=== PATIENT | female | born 1935 | race Caucasian/White ===

== ENCOUNTER → 2016-06-20 16:30 | Outpatient (CLI) | payer MEDICARE, OTHER | END | disposition home or self-care (01) | LOC: D.MAMMO 06-16 15:45 | DX: Z12.31 Encounter for screening mammogram for malignant neoplasm of breast (principal) ==

== ENCOUNTER → 2017-06-28 20:11 | Outpatient (CLI) | payer MEDICARE, OTHER | END | disposition home or self-care (01) | LOC: D.MAMMO 15:30 | DX: Z12.31 Encounter for screening mammogram for malignant neoplasm of breast (principal) ==

== ENCOUNTER 2018-07-13 09:00 | Outpatient (CLI) | payer MEDICARE, OTHER | END 2018-07-13 10:00 | disposition home or self-care (01) | LOC: D.MAMMO 09:00 | PROVIDERS: ATTEND Family Medicine | DX: Z12.31 Encounter for screening mammogram for malignant neoplasm of breast (principal) ==

== ENCOUNTER 2019-02-16 19:56 | Inpatient (IN) | payer MEDICARE, OTHER ==
[~2019-02-16] VITALS: Ht 154.9 cm; Wt 87.2 kg
--- NOTE | ~2019-02-16 | EC ---
PATIENT:MUNA PEREZ DATE OF SERVICE: 02/16/19 SEX: F MEDICAL RECORD: [id number] DATE OF : 33 LOCATION:D.M2 D.211 AGE OF PATIENT: 84 ADMISSION DATE: 02/16/19 REFERRING PHYSICIAN: INTERPRETING PHYSICIAN: RAMONE AYOUB MD ECHOCARDIOGRAM REPORT ECHO CHARGES 4 ECHO COMPLETE Date: 02/17/19 CLINICAL DIAGNOSIS: AL ECHOCARDIOGRAPHIC MEASUREMENTS (adult normal given) AC root (d.<3.7cm) 3.1 cm LV Septum d (<1.2 cm> 1.5 cm Valve Excursion 1.7 cm LV Septum (systole) 1.6 cm Left Atria (s.<4.0cm> 3.5 cm LVPW d(<1.2cm) 1.7 cm RV (d.<2.3cm) 4.0 cm LVPW (sytole) 2.0 cm LV diastole(<5.6CM) 2.9 cm MV E-F(>70mm/sec) cm LV systole 1.6 cm LVOT Diameter 1.8 cm MV exc.(>10mm) 1.2 cm Est.ejection fraction (50-75%) % DOPPLER: LVIT cm/sec A 119.0cm/sec E 55.0 cm/sec LA cm/sec RVSP 51 mmHg LVOT 87 cm/sec AOP1/2T m/s Asc. Ao 136 cm/sec RVOT 72 cm/sec RA cm/sec PA 82 cm/sec AV Gradient Peak 7.36 mmHg AV Mean 3.68 mmHg AV Area 1.6 cm MV Gradient Peak 5.45 mmHg MV Mean 1.67 mmHg MV Area cm COMMENTS: Instrument Setter: Samantha PLEITEZ Shank Sorter: 1 Dr. Ayoub TAPE# PACS Pericardial Effusion N DATE OF SERVICE: 02/17/2019 FINDINGS: 1. Left ventricular chamber size is within normal limits. Left ventricular systolic function is normal. Overall ejection fraction at 60% to 65%. 2. Left atrium is within normal limits at 3.5 cm. Right atrium and right ventricular chamber sizes are mildly dilated. 3. Valvular structures have normal structure and motion. 4. Doppler interrogation reveals trace mitral regurgitation, mild tricuspid regurgitation, no other valvular insufficiency or stenosis. ECHOCARDIOGRAM REPORT [id number] MUNA PEREZ 5. No evidence of pericardial effusion or left ventricular thrombus. TRANSINT:[id number] Voice Confirmation ID: [id number] DOCUMENT ID: [id number] RAMONE AYOUB MD CC: [id number] DICTATION DATE: 02/18/19 1002 SEARCH ENGINE OPTIMIZATION ANALYST: 02/18/19 1423 ADM IN [facility] [address] [place] [id number]
--- NOTE | ~2019-02-16 | DS ---
PATIENT:MUNA TSAI :33 MEDICAL RECORD: [id number] DISCHARGE SUMMARY ADMISSION DATE: 02/18/19 DISCHARGE DATE: DATE OF DISCHARGE: 02/18/2019 DIAGNOSES: 1. Non-Q-wave myocardial infarction. 2. Percutaneous transluminal coronary angioplasty stent left anterior descending this admission. 3. Hypertension. 4. Hyperlipidemia. HOSPITAL COURSE: Mrs. Tsai presents with acute coronary syndrome, elevated troponin, non-Q-wave myocardial infarction, found to have significant disease of the LAD, underwent successful PTCA stent of the LAD, discharged home with the addition of aspirin, Plavix, Pravachol to her medical regimen. No beta brett was undertaken secondary to hypotension and bradycardia. She will [facility] up with [facility] in [facility] month. TRANSINT:[id number] Voice Confirmation ID: [id number] DOCUMENT ID: [id number] RAMONE PATEL MD CC: [id number] DICTATION DATE: 02/18/19 1327 CABLE PLACER: 02/19/19 0539 ADM IN [facility] [address] [place] [address]
--- NOTE | ~2019-02-16 | OP ---
PATIENT NAME: MUNA PEREZ MEDICAL RECORD: [id number] :34 LOCATION:D.M2 D.2123 ADMISSION DATE:02/18/19 SURGEON: RAMONE PATEL MD DATE OF OPERATION: 02/18/2019 PROCEDURES: 1. PTCA stent LAD. 2. IFR. 3. Left heart catheterization. 4. Selective coronary angiography. 5. Left ventriculogram. INDICATION: Non-Q-wave myocardial infarction. DESCRIPTION OF PROCEDURE IN DETAIL: After informed consent was obtained and after description of risks, benefits as well as alternative therapies, the patient elected to proceed with angiogram and angioplasty. The right femoral area was prepped and draped in normal sterile fashion. Right femoral artery was cannulated via modified Seldinger technique with placement of 6-Pashto sheath. All catheters exchanged through this sheath. FINDINGS: The left ventriculogram was performed in standard 30-degree SALAZAR view, reveals good cardiac wall motion, ejection fraction is 60%. SELECTIVE CORONARY ANGIOGRAPHY: 1. Left main is with no significant angiographic disease. 2. Left anterior descending has a questionable 70% stenosis in the proximal aspect. IFR is abnormal at 0.81. 3. Left circumflex has moderate irregularities, but no flow-limiting stenosis. 4. Right coronary has moderate irregularities, but no flow-limiting stenosis. PTCA STENT OF THE LAD: The stent used was a 3.5 x 22 mm Bart. Result was 0% residual stenosis. OVERALL IMPRESSION: Successful percutaneous transluminal angioplasty stent of the left anterior descending going from 70% initial stenosis with abnormal IFR to 0% residual. TRANSINT:[id number] Voice Confirmation ID: [id number] DOCUMENT ID: [id number] RAMONE PATEL MD CC: [id number] DICTATION DATE: 02/18/19 1328 LAWN MOWER SHARPENER: 02/18/192032 ADM IN [facility] [address] [place] [address]
--- NOTE | ~2019-02-16 | HEMODYNAMI ---
PATIENT:MUNA PEREZ MEDICAL RECORD: [id number] : 33 [facility]ATION[facility] D.2118 [id number] ADMISSION DATE: 02/16/19 Generatedon:02/18/201913:38 Patient name: MUNA PEREZ Patient #: [id number] SSN: [id number] : 1935 Date of study: 02/18/2019 Page: Of Hemodynamic Procedure Report Patient Data Patient Demographics Procedure consent was obtained First Name: MUNA Gender: Female Last Name: CHRIS : 1935 [facility] Initial: AKI Age: 84 year(s) Patient #: [id number] Race: SSN: [id number] Additional ID: [id number] Contact details Address: [address] [place] [address] State: [place] City: [place] Zip code: [address] Admission Admission Data Admission Date: 02/16/2019 Admission Time: 21:01 Arrival Date: 02/18/2019 Arrival Time: 0:00 Admit Source: Emergency Insurance Payor: Medicare department [facility] #: [id number] Room #: D.2118 Lab Results Lab Result Date: 02/18/2019 Lab Result Time: 0:00 Biochemistry Name Units Result Min Max BUN mg/dl 55 --(----)-* 7 18 Creatinine mg/dl 1.8 --(----)-* 0.6 1.3 eGFR ml/min 28 *-(----)-- 90 120 NONAFRICAN Troponin l ng/ml 0.283 --(----)-* 0 0.06 CBC Name Units Result Min Max Hematocrit % 38.7 *-(----)-- 42 54 Hemoglobin g/dl 12.8 -*(----)-- 13.5 17.5 Procedure Procedure Types Cath Procedure Diagnostic Procedure LHC LH w/Coronaries FFR/IVUS FFR Initial Sedation Charges Moderate Sedation up to 15 minutes PCI Procedure Coronary Stent Coronary Stent Initial Hemochron ACT Test Procedure Description Procedure Date Procedure Date: 02/18/2019 Procedure Start Time: 13:08 Procedure End Time: 13:28 Procedure Staff Name Function Venkata Ayoub MD Performing Physician Que Gordon RT Monitor Tess Laureano RN Nurse Kiah Walker RT Scrub Indication Acute coronary syndrome Procedure Data Cath Procedure Fluoroscopy Diagnostic fluoroscopy Total fluoroscopy Time: 2.2 time: 2.2 min min Diagnostic fluoroscopy Total fluoroscopy dose: 410 dose: 410 mGy mGy Contrast Material Contrast Material Type Amount (ml) Isovue 370 71 Entry Location Entry Primary Successful Side Size Upsize Upsize Entry Closure Succes sful Closure Location (Fr) 1 (Fr) 2 (Fr) Remarks Device Remarks Femoral Right 5 Fr 6 Fr Exoseal artery Short Estimated blood loss: 10 ml Diagnostic catheters Device Type Used For End Catheter Placement MULTIPACK Pigtail 5 Fr Procedure catheter MULTIPACK JL 4.0 5Fr Procedure catheter MULTIPACK 3DRC 5Fr Procedure catheter Procedure Complications No complications Procedure Medications Medication Administration Route Dosage Oxygen etCO2 Nasal cannula 3 l/min Lidocaine 2% added to field 20 Heparin Flush Bag added to field 2 bags (1000units/500ml NS) 0.9% NaCl I.V. 100 ml/hr Radial Cocktail added to field 1 syringe (Verapamil 2mg/Nitro 400mcg/Heparin 1500units) Versed I.V. 1 mg Fentanyl I.V. 50 mcg Versed I.V. 1 mg Fentanyl I.V. 50 mcg Versed I.V. 1 mg Heparin Bolus I.V. 4000 units Plavix P.O. 75 mg Hemodynamics Rest HGB: 12.8 (g/dl) Heart Rate: 63 (bpm) Snapshots Pre Cath Intra NCS Post Cath Vital Signs Time Heart Resp SPO2 etCO2 NIBP (mmHg) Rhythm Pain Sedation Rate (ipm) (%) (mmHg) Status Level (bpm) 12:41:48 66 17 86 0 134/67(109) NSR 0 (11) 10(A) , No pain 12:46:02 64 15 86 0 122/61(96) NSR 0 (11) 10(A) , No pain 12:50:12 56 15 90 27.7 120/63(100) NSR 0 (11) 10(A) , No pain 12:54:20 57 15 97 23.2 126/60(102) NSR 0 (11) 10(A) , No pain 12:58:30 55 14 98 0 124/60(91) NSR 0 (11) 10(A) , No pain 13:02:37 58 15 98 22.4 126/67(82) NSR 0 (11) 10(A) , No pain 13:06:47 58 16 98 9.7 128/63(80) NSR 0 (11) 10(A) , No pain 13:10:59 57 14 96 4.4 119/58(81) NSR 0 (11) 9(A) , No pain 13:15:07 53 17 97 0 120/62(85) NSR 0 (11) 9(A) , No pain 13:19:19 55 12 97 25.4 119/61(99) NSR 0 (11) 9(A) , No pain 13:23:29 57 13 98 0 113/55(71) NSR 0 (11) 10(A) , No pain 13:27:37 58 14 98 0 109/56(70) NSR 0 (11) 10(A) , No pain Medications Time Medication Route Dose Verified Delivered Reason Not es Effectiveness by by 12:45:32 Oxygen etCO2 3 l/min Venkata Pulido used for Nasal Mega Laureano RN procedure cannula 12:46:07 Lidocaine 2% added 20ml Venkata Hastings for local to vial Mega Ayoub MD anesthetic field 12:46:14 Heparin Flush added 2 bags Venkata Hastings used for Bag to Mega Ayoub MD procedure (1000units/500ml field NS) 12:46:24 0.9% NaCl I.V. 100 Venkatakerri Pulido Per physician ml/hr Mega Laureano RN 12:48:36 Radial Cocktail added 1 Venkata Hastings for (Verapamil to syringe Mega Ayoub MD vasodilation 2mg/Nitro field 400mcg/Heparin 1500units) 13:05:51 Versed I.V. 1 mg Venkata Rameyie for sedation Mega Laureano RN 13:05:58 Fentanyl I.V. 50 mcg Venkata Rameyie for sedation Mega Laureano RN 13:11:52 Versed I.V. 1 mg Venkata Rameyie for sedation Mega Laureano RN 13:11:56 Fentanyl I.V. 50 mcg Venkata Pulido for sedation Mega Laureano RN 13:19:07 Heparin Bolus I.V. 4000 Venkata Pulido for amber ifed units Mega Laureano RN anticoagulation with dr ayoub 13:19:09 Versed I.V. 1 mg Venkata Pulido for sedation Mega Laureano RN 13:26:31 Plavix P.O. 75 mg Venkata Pulido for Mega Laureano RN antiplatelet therapy Procedure Log Time Note 12:12:53 Informed consent obtained and on chart 12:15:16 Arrival Date: 02/18/2019 12:00:00 AM 12:15:49 Insurance Payor : Medicare 12:15:52 Admit Source: Emergency department 12:19:36 Diagnostic Cath Status : Urgent 12:20:16 Indication : Acute coronary syndrome 12:20:41 Procedure Status Urgent Heart Cath (IP). 12:20:45 Que Gordon RT(R) sent for patient. Start room use. 12:20:48 Time tracking: Regular hours (M-F 7:00 - 5:00) 12:20:57 Plan of Care:Hemodynamics will remain stable., Cardiac rhythm will remain stable., Comfort level will be maintained., Respiratory function will remain adequate., Patient/ family verbilizes understanding of procedure., Procedure tolerated without complication., Recovers from procedure without complications.. 12:21:25 ACC Patient presents with Unstable Angina CCS Anginal Class 4--Inability to carry out any physical activity w/o angina. Angina may occur at rest. 12:27:51 Lab Result : BUN 55 mg/dl 12::51 Lab Result : eGFR NONAFRICAN 28 ml/min 12::51 Lab Result : Troponin l 0.283 ng/ml 12::51 Lab Result : Creatinine 1.8 mg/dl 12::51 Lab Result : Hematocrit 38.7 % 12:27:51 Lab Result : Hemoglobin 12.8 g/dl 12:33:00 Patient received from Med II to CCL 1 Alert and oriented. Tansferred to table in Supine position. 12:40:30 Warm blankets applied, and malinda hugger turned on for patient comfort. 12:40:31 Correct patient and procedure confirmed by team. 12:40:32 ECG and BP/O2 sat monitors applied to patient. 12:40:32 Vital chart was started 12:45:32 Oxygen 3 l/min etCO2 Nasal cannula was administered by Tess Laureano RN; used for procedure; Verbal order read back and verified. 12:46:07 Lidocaine 2% 20ml vial added to field was administered by Venkata Ayoub MD; for local anesthetic; Verbal order read back and verified. 12:46:14 Heparin Flush Bag (1000units/500ml NS) 2 bags added to field was administered by Venkata Ayoub MD; used for procedure; Verbal order read back and verified. 12:46:24 0.9% NaCl 100 ml/hr I.V. was administered by Tess Laureano RN; Per physician; Verbal order read back and verified. 12:48:36 Radial Cocktail (Verapamil 2mg/Nitro 400mcg/Heparin 1500units) 1 syringe added to field was administered by Venkata Ayoub MD; for vasodilation; Verbal order read back and verified. 12:49:05 Baseline sample Acquired. 12:49:12 Rhythm: sinus rhythm 12:49:14 Full Disclosure recording started 12:49:25 H&P Date Dictated: 02/16/2019 Within 30 days and on chart.. 12:49:26 Pre-procedure instructions explained to patient. 12:49:27 Pre-op teaching completed and patient verbalized understanding. 12:49:29 Family in waiting room. 12:49:32 Patient NPO since Midnight. 12:49:34 Is the patient allergic to Iodine/contrast media? No. 12:49:38 Is patient on blood thinner?Yes 12:49:42 ACC The patient was administered the following blood thiners within the last 24 hours: ACCPlavix 12:49:48 Patient diabetic? No. 12:49:51 Previous problem with sedation/anesthesia? No ? 12:49:55 Snore? Yes 12:49:56 Sleep apnea? No 12:49:57 Deviated septum? No 12:49:59 Opens mouth fully? Yes 12:50:00 Sticks out tongue? Yes 12:50:03 Airway obstruction? No ? 12:50:04 Dentures? Yes PARTIAL IN 12:50:18 Pre procedure: right dorsailis pedis pulse 1+ Palpable, but thready & weak; easily obliterated 12:57:34 Modified Sergey's test Ulnar < 7 seconds 12:57:35 Patient pain scale 0/10 ?. 12:57:43 IV patent on arrival in left forearm with 0.9% NaCl at [facility]. 12:57:45 Lab results completed and on chart. 13:02:28 Stress Test: no; N/A ? 13:02:31 Risk of Mortality: 2.1 13:02:35 Risk of blood transfusion: 3.3 13:02:38 Risk of DANTE: 9.3 13:02:48 Right Radial & Right Groin area was prepped with chlora-prep and draped in sterile fashion 13:02:50 Alarms reviewed by R. N. 13:02:51 Sharps counted by scrub and verified by R.N. 13:02:57 Use device set Radial Dx or PCI 13:02:59 Tegaderm 4 x 4 (1626W) opened to sterile field. 13:03:11 ACIST Syringe (14595) opened to sterile field. 13:03:12 Medline Cath Pack ([id number]) opened to sterile field. 13:03:12 Bag Decanter (2002S) opened to sterile field. 13:03:12 ACIST Hand Control (98203) opened to sterile field. 13:03:13 ACIST Manifold (46541) opened to sterile field. 13:03:14 MBrace Wrist Support ([id number]) opened to sterile field. 13:03:15 EMERALD Guide Wire (648-333) opened to sterile field. 13:04:18 Physician arrived 13:04:18 --------ALL STOP TIME OUT------ 13:04:19 Final Timeout: patient, procedure, and site verified with staff and physician. All members of the team are in agreement. 13:04:21 Right Radial & Right Groin site verified by team. 13:04:25 Fire Safety Assessment: A--An alcohol-based skin anteseptic being used preoperatively., C--Open oxygen or nitrous oxide is being used., D--An ESU, laser, or fiber-optic light is being used. 13:04:27 Physical assessment completed. ASA score P 2 - A patient with mild systemic disease as per Venkata Ayoub MD. 13:04:32 4) 15-29 Severley reduced kidney function. 13:04:35 Maximum allowable contrast dose (3.7 X eGFR X 0.75)78 ml. 13:04:39 Sedation plan: IV Moderate Sedation Medication:Versed, Fentanyl 13:05:51 Versed 1 mg I.V. was administered by Tess Laureano RN; for sedation; Verbal order read back and verified. 13:05:58 Fentanyl 50 mcg I.V. was administered by Tess Laureano RN; for sedation; Verbal order read back and verified. 13:08:51 Procedure started. 13:08:58 Local anesthetic to right radial artery with Lidocaine 2% by Venkata Ayoub MD.INITIAL ACCESS ONLY 13:10:13 Unable to advance wire due to radial loop. Moving to femoral approach. 13:10:33 Use device set Multipack Set 13:10:36 DIAGNOSTIC Multipack 5Fr catheter set ([id number]) opened to sterile field. 13:10:43 SHEATH 5FR [place] (CPI598) opened to sterile field. 13:11:35 Local anesthetic to right femoral artery with Lidocaine 2% by Venkata Ayoub MD.ADDITIONAL ACCESS 13:11:52 Versed 1 mg I.V. was administered by Tess Laureano RN; for sedation; Verbal order read back and verified. 13:11:56 Fentanyl 50 mcg I.V. was administered by Tess Laureano RN; for sedation; Verbal order read back and verified. 13:12:12 A 5 Fr sheath was inserted into the Right Femoral artery 13:12:20 A MULTIPACK Pigtail 5 Fr catheter was advanced over the wire and used for Procedure. 13:13:24 LV angiography performed. 13:13:25 LV gram done using SALAZAR 13:13:30 EF : 60 % 13:13:32 Injector settings: Ml/sec: 5, Volume: 15, 13:13:40 Catheter removed. 13:13:46 A MULTIPACK JL 4.0 5Fr catheter was advanced over the wire and used for Procedure. 13:14:35 LCA angiography performed. 13:15:08 Wentworth Verrata Plus pressure wire (24873W) opened to sterile field. 13:15:13 Use device set TAUTH PCI 13:15:16 SHEATH 6FR [place] (NEN206) opened to sterile field. 13:15:19 GUIDE 6FR XBLAD 3.5 catheter ([id number]) opened to sterile field. 13:15:30 Catheter removed. 13:15:42 Sheath upsized to a 6 Fr Short. 13:15:51 INFLATOR Merit BasixCompak (EE5324) opened to sterile field. 13:15:56 A MULTIPACK 3DRC 5Fr catheter was advanced over the wire and used for Procedure. 13:16:34 RCA angiography performed. 13:16:36 ACCDominant side:Right 13:16:45 Catheter removed. 13:17:17 6 Fr XBLAD 3.5 guide catheter was inserted over the wire 13:17:33 FFR/IFR wire advanced. 13:18:25 Wire advanced across lesion. 13:19:07 Heparin Bolus 4000 units I.V. was administered by Tess Laureano RN; for anticoagulation; verifed with dr ayoub Verbal order read back and verified. 13:19:09 Versed 1 mg I.V. was administered by Tess Laureano RN; for sedation; Verbal order read back and verified. 13:19:30 mLAD lesion measured at 0.81 with IFR 13:21:28 Pre PCI Site: Three Affiliated pLAD has 70% stenosis. 13:21:31 ACC Pre-intervention GABINO Flow is 3. 13:21:44 Place stent Inflation Number: 1 A KAREN RX 3.5 x 22 stent ([id number]) was prepped and advanced across the Prox LAD 70. The stent was deployed at 17 SHAMIKA for 0:10 (min:sec) 0. 13:21:48 Stent catheter was removed intact over wire. 13:21:49 Wire removed. 13:21:49 Guide catheter removed. 13:21:52 ACC Post-intervention GABINO Flow is 3. 13:22:01 Post PCI Site: Three Affiliated pLAD has 0% stenosis. 13:23:29 EXOSEAL 6Fr (EX600) opened to sterile field. 13:23:40 Sheath removed intact; hemostasis achieved with Exoseal to the Right Femoral artery. 13:23:46 Procedure ended.(Physican Out) 13:24:16 Fluoroscopy time 02.20 minutes. 13:24:20 Fluoroscopy dose: 410 mGy 13:24:20 Flurop Dose total: 410 13:24:37 Dose Area Product 67519 mGy/cm. 13:24:46 Contrast amount:Isovue 370 71ml. 13:24:56 Maximum allowable dose exceeded? No. 13:24:58 Sharps counted by scrub and verified by R.N. 13:25:04 Post-op/insertion site Right Femoral artery dressed using a 4 x 4 and Tegaderm. 13:25:06 Post Procedure Pulses reassessed and unchanged 13:25:08 Post-procedure physical assessment completed. ASA score P 2 - A patient with mild systemic disease as per Venkata Ayoub MD. 13:25:11 Post procedure rhythm: unchanged. 13:25:12 Estimated blood loss: 10 ml 13:25:14 Post procedure instruction explained to patient.Patient verbalizes understanding. 13:25:14 Patient needs reinforcement of post procedure teaching. 13:25:37 Procedure type changed to Cath procedure, Diagnostic procedure, LHC, C w/Coronaries, FFR/IVUS, FFR Initial, Sedation Charges, Moderate Sedation up to 15 minutes, PCI procedure, Coronary Stent, Coronary Stent Initial, Hemochron ACT Test 13:25:39 Procedure and supply charges have been captured, reviewed, submitted and are correct. 13:26:31 Plavix 75 mg P.O. was administered by Tess Laureano RN; for antiplatelet therapy; Verbal order read back and verified. 13:27:04 ACT drawn and resulted at 194 seconds. (normal therapeutic range 180-240 seconds). 13:28:21 Procedure Complication : No complications 13:28:25 Vital chart was stopped 13:28:26 [facility] Findings: MVD- PCI performed (see procedure note) 13:28:28 Operative report dictated upon procedure completion. 13:28:28 See physician's report for complete and final results. 13:28:30 Report given to Pre/Post Procedure Room. 13:28:33 Patient transfered to Pre/Post Procedure Room with Stretcher. 13:28:35 Procedure ended. 13:28:35 Full Disclosure recording stopped 13:29:02 End room use (Document Last) 13:29:13 End room use (Document Last) 13:36:43 Pt began to develop a hematoma of the right groin, Femstop placed at 100. 13:36:57 FEMSTOP Gold (O49039) opened to sterile field. Intervention Summary Intervention Notes Time ActionType Lesion and Equipment Used Action# Pressure Duration Attributes 13:21:44 Place stent Prox LAD KAREN RX 3.5 x 1 17 00:10 22 stent ([id number]) Device Usage Item Name Manufacture Quantity Catalog Hospital Part Current Minimal Lot# / Number Charge Number Stock Stock Serial# Code Tegaderm 4 x 4 3M 1 1626W 176397 508705 798142 5 (1626W) ACIST Syringe Acist 1 68329 594445 702765 625235 20 (61081) Medical Systems Inc Medline Cath Medline 1 [id number] 741327 63608 679305 5 Pack ([id number]) Bag Decanter Microtek 1 2001S 221452 52115 019636 5 (2001S) Medical Inc. ACIST Hand Acist 1 53588 582617 163556 365711 5 Control Medical (10579) Systems Inc ACIST Manifold Acist 1 72107 106330 081480 214948 5 (25613) Medical Systems Inc MBrace Wrist Advanced 1 140-0250-00 241146 17288 823980 5 Support Vascular ([id number]) Dynamics EMERALD Guide Cardinal 1 502-455 703415 266263 270060 5 Wire (502-455) Health DIAGNOSTIC Cardinal 1 QW6322 164976 50767 017366 30 Multipack 5Fr Health catheter set (LF0417) SHEATH 5FR Terumo 1 VUE833 399767 274187 522246 5 [place] (BQF939) MULTIPACK Cardinal 1 476944 5 Pigtail 5 Fr Health catheter MULTIPACK JL Cardinal 1 173768 5 4.0 5Fr Health catheter Wentworth Wentworth 1 21693Q 136716 661355984 221542 5 Verrata Plus pressure wire (20514A) SHEATH 6FR Terumo 1 YEZ834 703741 506498 304978 40 [place] (XWS015) GUIDE 6FR Cardinal 1 [id number] 135829 581269 485037 10 XBLAD 3.5 Health catheter (38790106) INFLATOR Merit Merit 1 JY6294 856209 778841 377840 15 aScentiasmaConnectAndSell (IJ6320) MULTIPACK 3DRC Cardinal 1 894537 5 5Fr catheter Health KAREN RX 3.5 x Medtronic 1 [id number] 953152 9508737 705762 5 [id number] 22 stent ([id number]) EXOSEAL 6Fr Cardinal 1 EX600 602521 587085 149575 10 (EX600) [facility] 1 C52487 998713 244285 735520 5 (V05042) Signature Audit Hadley Stage Time Signature Unsigned Intra-Procedure 02/18/2019 Que Gordon 1:29:13 PM RT(R) Intra-Procedure 02/18/2019 Tess Laureano RN 1:37:42 PM Intra-Procedure 02/18/2019 Venkata Ayoub 1:38:[address] [address]
--- NOTE | ~2019-02-16 | DS ---
PATIENT:MUNA TSAI :33 MEDICAL RECORD: [id number] DISCHARGE SUMMARY ADMISSION DATE: 02/18/19 DISCHARGE DATE: DATE OF SERVICE: 02/19/2019 DIAGNOSES: 1. Angina. 2. Coronary artery disease. 3. Non-Q-wave myocardial infarction. 4. Percutaneous transluminal coronary angioplasty stent left anterior descending this admission. 5. Hypertension. 6. Hyperlipidemia. HOSPITAL COURSE: Mrs. Tsai presents with acute coronary syndrome, non-Q-wave myocardial infarction, found to have significant disease of the LAD, underwent successful PTCA stent of the LAD, was kept overnight secondary to shortness of breath and hypoxia. This resolved with no real treatment. VQ scan was negative. Discharged home to follow up with [facility] in 1 month. TRANSINT:[id number] Voice Confirmation ID: [id number] DOCUMENT ID: [id number] RAMONE PATEL MD CC: [id number] DICTATION DATE: 02/19/19 0757 GRAVURE PRESS SET UP OPERATOR: 02/19/19 0844 ADM IN [facility] [address] [place] [address]
[2019-02-16] MEDS ORDERED: PROTONIX40 MG PO (20:08)
[2019-02-16] MEDS ORDERED: ZOFRAN4 MG PO (20:08)
[2019-02-16] MEDS ORDERED: DILTIAZEM 24HR360 M4 PO (20:09)
[2019-02-16] MEDS ORDERED: CARDURA2 MG PO (20:09)
[2019-02-16] MEDS ORDERED: DIOVAN40 MG (20:12)
[2019-02-16] MEDS ORDERED: KLOR-CON M2020 MEQ PO (20:12)
[2019-02-16] MEDS ORDERED: SYNTHROID25 MCG PO (20:13)
[2019-02-16] MEDS ORDERED: OS-CAL500 MG PO (20:14)
[2019-02-16] MEDS ORDERED: VITAMIN D31000 UNI2 PO (20:14)
[2019-02-16 20:45] VITALS: BP 112/52
[2019-02-16 21:19] LABS: BASOPHILS 0.1 % (0-2); EOSINOPHILS 1.3 % (0-7); HEMATOCRIT 38.7 % (36.0-48.0); HEMOGLOBIN 12.8 g/dL (12-16); IMMATURE GRANULOCYTES 0.2 % (0-5); LYMPHOCYTES 11.3 % (15-50); MCH 31.1 pg (26.0-34.0); MCHC 33.1 g/dL (31.0-37.0); MCV 94.2 fL (80.0-100.0); MONOCYTES 7.3 % (2-11); NEUTROPHILS 79.8 % (40-80); PLATELET COUNT 150 10x3/uL (130-400); RBC 4.11 10x6/uL (4.00-5.40); RDW 13.7 % (11.5-14.5); WBC 9.7 10x3/uL (4.8-10.8)
[2019-02-16 21:24] LABS: APTT 26.9 SECONDS (22.8-39.4); INR 1.18 (0.85-1.17); PROTIME 14.5 SECONDS (11.6-15.0)
[2019-02-16 21:25] LABS: ANION GAP 13.3 mmol/L (8-16); CALCIUM 8.5 mg/dL (8.5-10.1); CARBON DIOXIDE 26.6 mmol/L (21.0-32.0); CREATININE - SERUM 1.8 mg/dL (0.6-1.3); POTASSIUM - SERUM 3.9 mmol/L (3.5-5.1)
[2019-02-16 21:35] VITALS: BP 116/53
[2019-02-16 21:50] LABS: ALBUMIN 2.8 g/dL (3.4-5.0); BILIRUBIN - TOTAL 0.57 mg/dL (0.2-1.3); PROTEIN - SERUM 6.2 g/dL (6.4-8.2); THYROID STIMULATING HORMONE 2.09 uIU/mL (0.36-3.74)
[2019-02-16 21:52] LABS: TROPONIN-I 0.283 ng/mL (0.000-0.060)
[2019-02-16 22:15] VITALS: BP 116/53
[2019-02-17 03:18] VITALS: BP 130/88; BMI 355.8
[2019-02-17 04:00] VITALS: BP 108/56
--- NOTE | 2019-02-17 07:15 | NUR ---
RECEIVED PT IN BED EYES CLOSED RESP UNLABORED SKIN W/D COLOR WNL NAD NOTED
[2019-02-17 08:19] VITALS: BP 131/55
--- NOTE | 2019-02-17 10:20 | NUR ---
DR PATEL HERE TO SEE PT
[2019-02-17 11:48] VITALS: BP 139/58
[2019-02-17 16:44] VITALS: BP 113/61
--- NOTE | 2019-02-17 19:30 | NUR ---
REPORT AND INITIAL ROUNDS COMPLETED. PT RESTING IN BED WITH SPOUSE AT BEDSIDE. WILL BE NPO AT MIDNIGHT FOR AM ANGIOGRAM. PT TEACHING TO AND SPOUSE AT THIS TIME ON PLANNED PROCEDURE. CPOC. CALL LIGHT IN REACH.
[2019-02-17 20:00] VITALS: BP 102/51
[2019-02-17 21:46] LABS: APPEARANCE SL CLDY (CLEAR); BILIRUBIN NEGATIVE (NEGATIVE); COLOR DK YELLOW (YELLOW); GLUCOSE NEGATIVE (NEGATIVE); KETONE NEGATIVE (NEGATIVE); NITRITE NEGATIVE (NEGATIVE); PROTEIN NEGATIVE (NEGATIVE); UROBILINOGEN NORMAL (NORMAL)
--- NOTE | 2019-02-17 23:15 | NUR ---
BEDTIME LOVENOX ADMINISTERED. CONSENTS FOR AM ANGIOGRAM/HEART CATH SIGNED. SPOUSE AT BEDSIDE. NO OTHER NEEDS. CPOC.
[2019-02-18 04:00] VITALS: BP 104/36
[2019-02-18 09:20] VITALS: BP 129/52
[2019-02-18 12:10] VITALS: BP 129/55
--- NOTE | 2019-02-18 12:22 | NUR ---
PRE-OPS GIVEN. TO FRYER OPERATOR BY BED.
--- NOTE | 2019-02-18 13:48 | NUR ---
PT ARRIVED BY STRETCHER. PLACED ON MONITORS. ASSESSMENT COMPLETED. VSS. FAMILY AT BEDSIDE. PT IN SUPINE POSITION. CALL LIGHT WITHIN REACH.
[2019-02-18] MEDS ORDERED: BAYER CHEWABLE81 MG PO (14:00)
[2019-02-18] MEDS ORDERED: PLAVIX75 MG PO (14:00)
[2019-02-18] MEDS ORDERED: PRAVACHOL20 MG PO (14:01)
--- NOTE | 2019-02-18 14:03 | NUR ---
PT RESTING COMFORTABLY. VSS. RIGHT GROIN DRESSING C/D/I. NO S/S OF HEMATOMA NOTED. FAMILY AT BEDSIDE.
--- NOTE | 2019-02-18 14:30 | NUR ---
RIGHT GROIN DRESSING C/D/I. NO S/S OF HEMATOMA NOTED. CALL LIGHT WITHIN REACH. FAMILY AT BEDSIDE. VSS.
[2019-02-18 14:36] VITALS: Ht 154.9 cm; Wt 87.2 kg
--- NOTE | 2019-02-18 14:59 | NUR ---
RIGHT GROIN SOFT TO TOUCH. NO BLEEDING/HEMATOMA NOTED. PRESSURE RELEASED FROM RIGHT FEMSTOP. CURRENTLY AT 55mmHg. RIGHT PEDAL PULSE PALPABLE.
--- NOTE | 2019-02-18 15:20 | NUR ---
FEMSTOP DEC TO 35mmHg. PT C/O LEG PAIN AT FEMSTOP SITE AND DOWN RIGHT LEG TO KNEE. DR. PATEL NOTIFIED. ORDERS RECEIVED FOR NORCO PILL FOR PAIN.
--- NOTE | 2019-02-18 15:35 | NUR ---
FEMSTOP OFF. RIGHT GROIN W/NO S/S OF HEMATOMA NOTED. NO BLEEDING NOTED. RIGHT PEDAL PULSE PALPALBE. RIGHT LEG WARM TO TOUCH.
--- NOTE | 2019-02-18 15:39 | NUR ---
ATTEMPTED TO WEAN PT OFF HER O2. O2 SAT 83-86% ON ROOM AIR. PT PLACED BACK ON 2LNC. O2 SAT 93%. RESP 12. WILL CONTINUE TO MONITOR.
--- NOTE | 2019-02-18 15:50 | NUR ---
DRESSING APPLIED TO RIGHT GROIN. NO BLEEDING/HEMATOMA NOTED. CALL LIGHT WITHIN REACH. REFUSING NORCO THAT WAS ORDERED. SHE STATES SHE HAS NO PAIN NOW THAT FEMSTOP IS REMOVED. DR. PATEL DECIDED TO KEEP PT OVERNIGHT TO MONITOR OXYGEN SATURATIONS SINCE PT WILL DROP DOWN TO 83-85% ON ROOM AIR. CURRENT O2 SAT IS 94% ON 1LNC. PT AND PT'S FAMILY NOTIFIED OF PLAN TO KEEP OVERNIGHT. THEY VOICED UNDERSTANDING.
--- NOTE | 2019-02-18 16:30 | NUR ---
RIGHT GROIN DRESSING C/D/I. NO S/S OF HEMATOMA NOTED. PT'S HEAD OF BED INC TO 30 DEGREES. TOLERATED WELL. VSS. PT SET UP WITH SANDWICH TRAY AND DRINK. NO NEEDS AT THIS TIME. FAMILY AT BEDSIDE.
--- NOTE | 2019-02-18 16:45 | NUR ---
ATTEMPTED TO WEAN OFF OXYGEN. PT ON ROOM AIR AND SITTING UP. O2 SAT STILL DEC TO 86-88% ON ROOM AIR WHILE SITTING UP IN BED. PT PLACED BACK ON O2 AT 1LNC. OXYGEN SAT AT 93% ON 1LNC.
--- NOTE | 2019-02-18 17:25 | NUR ---
DR. PATEL NOTIFIED OF D-DIMER RESULTS. HE WILL ROUND ON PT BEFORE SHE LEAVES FOR HER ROOM ON MED/SURG.
--- NOTE | 2019-02-18 17:41 | NUR ---
DR. PATEL AT BEDSIDE AND UPDATED ON PT'S STATUS. HE SPOKE WITH PT AND PT'S FAMILY. THEY VOICED UNDERSTANDING. ORDERS RECEIVED.
--- NOTE | 2019-02-18 18:00 | NUR ---
REPORT CALLED TO LEONARDO LEIVA. ON MED 2.
--- NOTE | 2019-02-18 18:18 | NUR ---
PT TAKEN DOWN TO ROOM BY STRETCHER. FAMILY GIVEN NEW ROOM NUMBER AND THEY FOLLOWED PT DOWN TO ROOM. PT'S TRANSPORTED BY WHEELCHAIR.
--- NOTE | 2019-02-18 18:35 | NUR ---
RECIVED FROM POST CATH. FAMILY AT SIDE.
--- NOTE | 2019-02-18 19:15 | NUR ---
PT OUT OF ROOM, GONE TO NUCLEAR MED FOR SCAN.
--- NOTE | 2019-02-18 19:22 | NUR ---
BACK TO ROOM FROM VQ SCAN.
[2019-02-18 20:00] VITALS: BP 124/60
[2019-02-19 00:33] VITALS: BP 148/60
--- NOTE | 2019-02-19 01:19 | NUR ---
I have reviewed this patient and I concur with the Shift Assessment completed by the Licensed Practical Nurse today this shift.
--- NOTE | 2019-02-19 03:59 | NUR ---
SITTING UP ON SIDE OF BED, PT DENIES PAIN OR NEEDS.
[2019-02-19 04:00] VITALS: BP 130/64
--- NOTE | 2019-02-19 07:21 | NUR ---
ASSESSMENT DONE. DENIES NEEDS
--- NOTE | 2019-02-19 07:56 | HP ---
PATIENT: MUNA TSAI MEDICAL RECORD: [id number] ACCOUNT: [id number] LOCATION:[address] : 33 ADMISSION DATE: 02/18/19 PCP: CORDELIA COLUNGA MD HISTORY AND PHYSICAL EXAMINATION DIAGNOSES: 1. Non-Q-wave myocardial infarction. 2. Coronary artery disease. 3. Hypertension. 4. Shortness of breath - dyspnea on exertion. 5. Hyperlipidemia. HISTORY OF PRESENT ILLNESS: Mrs. Tsai presents with 3 weeks of increasing shortness of breath, dyspnea on exertion and chest pressure. Her troponin is positive for non-Q-wave myocardial infarction. She has no history of ischemic heart disease. The symptomatology has been progressing over the past 3 weeks to the point of coming into the Emergency Room last night. Her EKG is with no acute ST-T abnormalities. She is pain free at this time. PHYSICAL EXAMINATION: CONSTITUTIONAL/GENERAL APPEARANCE: Well nourished, well developed, appears stated age. EYES: Lids and conjunctivae noninjected. No discharge. No pallor. ENT: Lips within normal limit. No cyanosis. No pallor. NECK: Carotid arteries, bilateral normal upstroke. No bruits. No thrills. No jugular venous pressure or distention. CERVICAL LYMPH NODES: Nontender. Nonenlarged. THYROID: Not enlarged. No nodules. CARDIOVASCULAR: Precordial exam, nondisplaced. No heaves or pericardial thrills. Rate and rhythm, regular. Heart sounds, normal S1, normal S2. No S3, no gallop, no rub. Systolic murmur, not heard. Diastolic murmur, not heard. RESPIRATORY: Respiratory effort, unlabored. Normal curvature. No thoracic deformity. No chest wall tenderness. Percussion, resonant. Auscultation, clear. No wheezes, no rales, no rhonchi. ABDOMEN: Soft, nondistended, nontender. No abdominal pain, no vomiting and normal appetite. MUSCULOSKELETAL: No joint tenderness, normal gait, normal tone. SKIN: Warm and dry. OVERALL IMPRESSION: Non-Q-wave myocardial infarction with progressive symptomatology. We will proceed with coronary angiography. Further care depends upon the findings of the angiography. TRANSINT:[id number] Voice Confirmation ID: [id number] DOCUMENT ID: [id number] HISTORY AND PHYSICAL [id number] CHRIS,RAMONE ACUNA MD at 0756 CC: [id number] DICTATION DATE: 02/17/19 1033 STOCKHOLDER: 02/17/19 1136 ADM IN [facility] [address] [place] [address]
[2019-02-19 08:17] VITALS: BP 128/58
--- NOTE | 2019-02-19 09:18 | NUR ---
I have reviewed this patient and I concur with the Shift Assessment completed by the Licensed Practical Nurse today this shift.
--- NOTE | 2019-02-19 09:37 | NUR ---
DC GIVEN TO PT
--- NOTE | 2019-02-19 09:46 | NUR ---
DC HOME PER PERSONAL CAR
--- NOTE | 2019-02-21 09:09 | MORECARE ---
CASE MANAGEMENT DISCHARGE SUMMARY PATIENT: MUNA TSAI UNIT: [id number] ADM DATE: 02/18/19 AGE: 84 : 34 SEX: F ROOM/BED: D.2123 AUTHOR: JESSICA PHAM PHYSICIAN: REFERRING PHYSICIAN: RAMONE PATEL MD DATE OF SERVICE: 02/21/19 Discharge Plan Patient Name: MUNA TSAI [facility] : 1935 Planned Disposition: Home Anticipated Discharge Date: 02/19/19 Discharge Date: 02/19/2019 Expected LOS: 1 Initial Reviewer: [id number] Initial Review Date: 02/21/2019 Generated: 02/21/19 10:09 am Coverage Notice Reviewer: [email or web address] Enzo Rush Notice Issued Date-Time: 02/17/2019 19:00 Notice Type: Medicare Outpatient Observation Notice Notice Delivered To: Patient Relationship to Patient: Self Clinical Cytogenetics Director Name: Muna Tsai Delivery Method: HAND - Hand Delivered [place] Days: Prior Verbal Notification: Recipient Understood Notice: Yes Recipient Signature: Yes Med Rec Note Co-signed by Attending: Coverage Notice Comment: MILAN delivered to and signed by patient. Original given to patient and one placed on chart. Patient Name: MUNA TSAI Page [phone] at 0909 All edits/amendments must be made on the electronic document DICTATION DATE: 02/21/19907 ASSISTANT AUTO CENTER MANAGER: DM 02/21/19907 RPT#: [id number] DC DATE:02/19/19 STATUS: DIS IN [facility] [address] [place] [address] END OF REPORT
== END 2019-02-19 09:47 | disposition home or self-care (01) | DRG 247 ==
LOC: D.ER 19:56 → D.M2 21:01 → OBSVTIME 23:15 → D.CLR 02-18 15:19 → D.M2 02-18 18:07
PROVIDERS: Family Medicine; ADMIT Internal Medicine Interventional Cardiology; ATTEND Internal Medicine Interventional Cardiology
PROC: B2111ZZ Fluoroscopy of Multiple Coronary Arteries using Low Osmolar Contrast (ICD-10-PCS; 2019-02-18)
PROC: B2151ZZ Fluoroscopy of Left Heart using Low Osmolar Contrast (ICD-10-PCS; 2019-02-18)
PROC: 027034Z Dilation of Coronary Artery, One Artery with Drug-eluting Intraluminal Device, Percutaneous Approach (ICD-10-PCS; principal; 2019-02-18 12:20)
PROC: 4A023N7 Measurement of Cardiac Sampling and Pressure, Left Heart, Percutaneous Approach (ICD-10-PCS; 2019-02-18 12:20)
DX: I21.4 Non-ST elevation (NSTEMI) myocardial infarction (principal); I25.119 Atherosclerotic heart disease of native coronary artery with unspecified angina pectoris; I10 Essential (primary) hypertension; E78.5 Hyperlipidemia, unspecified

== ENCOUNTER 2019-02-28 11:04 | Inpatient (IN) | payer MEDICARE, OTHER ==
[~2019-02-28] VITALS: Ht 154.9 cm; Wt 84.6 kg
[2019-02-28] VITALS (10 sets, daily range): BP systolic 053–129; BP diastolic 54–65; BMI 33.0
[~2019-02-28 11:04] MED LIST: BAYER CHEWABLE81 MG PO; CARDURA2 MG PO; DILTIAZEM 24HR360 M4 PO; DIOVAN40 MG; KLOR-CON M2020 MEQ PO; OS-CAL500 MG PO; PLAVIX75 MG PO; PRAVACHOL20 MG PO; PROTONIX40 MG PO; SYNTHROID25 MCG PO; VITAMIN D31000 UNI2 PO; ZOFRAN4 MG PO
[2019-02-28 11:53] LABS: BASOPHILS 0.2 % (0-2); EOSINOPHILS 1.3 % (0-7); HEMATOCRIT 39.6 % (36.0-48.0); HEMOGLOBIN 13.2 g/dL (12-16); IMMATURE GRANULOCYTES 0.4 % (0-5); LYMPHOCYTES 16.5 % (15-50); MCH 31.4 pg (26.0-34.0); MCHC 33.3 g/dL (31.0-37.0); MCV 94.1 fL (80.0-100.0); MEAN PLATELET VOLUME 9.3 fL (7.4-10.4); NEUTROPHILS 71.6 % (40-80); RBC 4.21 10x6/uL (4.00-5.40); RDW 13.9 % (11.5-14.5); WBC 10.2 10x3/uL (4.8-10.8)
[2019-02-28 12:05] LABS: PLATELET COUNT 271 10x3/uL (130-400)
[2019-02-28 12:08] LABS: APTT 26.1 SECONDS (22.8-39.4); INR 1.07 (0.85-1.17); PROTIME 13.8 SECONDS (11.6-15.0)
[2019-02-28 12:13] LABS: CALC OSMOLALITY 288 mosm/kg (275-300); CALCIUM 9.5 mg/dL (8.5-10.1); CARBON DIOXIDE 28.1 mmol/L (21.0-32.0); CHLORIDE - SERUM 103 mmol/L (98-107); CREATININE - SERUM 1.6 mg/dL (0.6-1.3); GLUCOSE 113 mg/dL (74-106); POTASSIUM - SERUM 4.2 mmol/L (3.5-5.1); SODIUM 142 mmol/L (136-145); UREA NITROGEN 26 mg/dL (7-18); eGFR NON AFRICAN AMERICAN 32 mL/min (90-120)
[2019-02-28 12:20] LABS: D-DIMER-QUANTITATIVE 5.21 ug/mLFEU (0.20-0.54)
[2019-02-28 12:31] LABS: ALBUMIN 3.1 g/dL (3.4-5.0); ALKALINE PHOSPHATASE 80 U/L (46-116); ALT (SGPT) 22 U/L (10-68); BILIRUBIN - TOTAL 0.61 mg/dL (0.2-1.3); CKMB 1.5 U/L (0.0-3.6); CREATINE KINASE 37 UL (21-215); PRO BNP 4712 pg/mL (0-450); PROTEIN - SERUM 6.4 g/dL (6.4-8.2)
[2019-02-28 12:35] LABS: TROPONIN-I 0.367 ng/mL (0.000-0.060)
--- NOTE | 2019-02-28 15:30 | NUR ---
PT RECEIVED TO ROOM 2309. ON VENTI MASK AT 40%. PT ABLE TO SCOOT FROM STRETCHER TO BED. IV TO RIGHT HAND WITH NS AT 75ML/HR. VSS. WILL CONTINUE TO MONITOR.
--- NOTE | 2019-02-28 17:11 | NUR ---
PT SWITCHED TO HIGH FLOW O2 TO EAT DINNER. O2 SAT AT 90%.
--- NOTE | 2019-02-28 19:00 | NUR ---
ASSESSMENT COMPLETED. LAYING IN BED, WATCHING TV. DENIES ANY NEEDS. INDEPENDENT WITH REPOSITIONING. USES BEDPAN. REFUSES CHG BATH
[2019-02-28 20:59] LABS: CKMB 1.7 U/L (0.0-3.6); CREATINE KINASE 37 UL (21-215)
[2019-02-28 21:00] LABS: TROPONIN-I 0.234 ng/mL (0.000-0.060)
--- NOTE | 2019-02-28 21:00 | NUR ---
DENIES ANY NEEDS. EYES CLOSED, EASILY WAKES. INDEPENDENT WITH REPOSITIONING. REFUSED NEED TO TAKE OUT PARTIAL FOR THE NIGHT
--- NOTE | 2019-02-28 23:00 | NUR ---
RE-ASSESSMENT COMPLETED. NO CHANGES SINCE LAST ASSESSMENT
[2019-03-01] VITALS (24 sets, daily range): BP systolic 99–140; BP diastolic 48–72; Ht 154.9 cm; Wt 84.6 kg
--- NOTE | 2019-03-01 01:00 | NUR ---
EYES CLOSED, EASILY WAKES. DENIES COMPLAINTS. INDEPENDENT WITH REPOSITIONING
--- NOTE | 2019-03-01 03:00 | NUR ---
RE-ASSESSMENT COMPLETED. NO CHANGES SINCE LAST ASSESSMENT. DENIES ANY NEEDS.
[2019-03-01 03:13] LABS: BASOPHILS 0.2 % (0-2); EOSINOPHILS 4.9 % (0-7); HEMATOCRIT 34.9 % (36.0-48.0); HEMOGLOBIN 11.3 g/dL (12-16); IMMATURE GRANULOCYTES 0.2 % (0-5); LYMPHOCYTES 23.3 % (15-50); MCH 30.8 pg (26.0-34.0); MCHC 32.4 g/dL (31.0-37.0); MCV 95.1 fL (80.0-100.0); MEAN PLATELET VOLUME 9.6 fL (7.4-10.4); MONOCYTES 10.7 % (2-11); NEUTROPHILS 60.7 % (40-80); PLATELET COUNT 225 10x3/uL (130-400); RBC 3.67 10x6/uL (4.00-5.40); RDW 13.9 % (11.5-14.5); WBC 8.6 10x3/uL (4.8-10.8)
[2019-03-01 04:03] LABS: CALC OSMOLALITY 286 mosm/kg (275-300); CALCIUM 8.3 mg/dL (8.5-10.1); CARBON DIOXIDE 30.8 mmol/L (21.0-32.0); CHLORIDE - SERUM 108 mmol/L (98-107); CKMB 1.6 U/L (0.0-3.6); CREATINE KINASE 32 UL (21-215); CREATININE - SERUM 1.2 mg/dL (0.6-1.3); GLUCOSE 90 mg/dL (74-106); MAGNESIUM - SERUM 2.2 mg/dL (1.8-2.4); PHOSPHOROUS 3.6 mg/dL (2.5-4.9); POTASSIUM - SERUM 4.1 mmol/L (3.5-5.1); SODIUM 143 mmol/L (136-145); TROPONIN-I 0.165 ng/mL (0.000-0.060); UREA NITROGEN 18 mg/dL (7-18); eGFR NON AFRICAN AMERICAN 45 mL/min (90-120)
--- NOTE | 2019-03-01 05:00 | NUR ---
EYES CLOSED, EASILY WAKES, DENIES ANY NEEDS. CALL LIGHT IN REACH
--- NOTE | 2019-03-01 07:26 | NUR ---
REPORT RECEIVED. PT VOIDED 150 ML. ON O2 AT 13L HIGH FLOW. ALERT AND ORIENTED. IV TO RIGHT HAND WITH NS AT 75ML/HR.
[2019-03-01 09:30] LABS: CKMB 1.4 U/L (0.0-3.6); CREATINE KINASE 38 UL (21-215)
--- NOTE | 2019-03-01 09:30 | NUR ---
PT TOOK AM MEDICATIONS WITH NO PROBLEMS. DR JAMES ROUNDED ON PT AND ORDERED LAB STUDIES. ULTRASOUND ORDERED. FAMILY AT BEDSIDE. VSS. WILL CONTINUE TO MONITOR.
--- NOTE | 2019-03-01 11:26 | NUR ---
LOVENOX GIVEN. US TECH IN ROOM WITH PT.
--- NOTE | 2019-03-01 13:16 | NUR ---
PT VOIDED ON BEDPAN. EATING LUNCH TRAY. AT BEDSIDE. NO OTHER NEEDS AT THIS TIME.
--- NOTE | 2019-03-01 15:31 | NUR ---
NO BLOOD CLOTS IN BLE OR BUE. DR ALFONSO STATED HE ORDERED AN ECHO. HAS NOT YET BEEN DONE. VSS. WILL CONTINUE TO MONITOR.
--- NOTE | 2019-03-01 19:00 | NUR ---
ASSESSMENT COMPLETED. DENIES ANY NEEDS. O2 AT 13L VIA HIGH FLOW NC.
--- NOTE | 2019-03-01 21:00 | NUR ---
CHG BATH GIVEN WITH COMPLETE LINEN CHANGE. PATIENT COMPLETED TASK WITH STAND BY ASSIST
--- NOTE | 2019-03-01 23:00 | NUR ---
RE-ASSESSMENT COMPLETED. NO CHANGES SINCE LAST ASSESSMENT. DENIES ANY NEEDS.
[2019-03-02] VITALS (24 sets, daily range): BP systolic 103–137; BP diastolic 41–86
--- NOTE | 2019-03-02 01:00 | NUR ---
EYES CLOSED, EASILY WAKES. DENIES ANY NEEDS. DENIES ANY SOB
--- NOTE | 2019-03-02 03:00 | NUR ---
RE-ASSESSMENT COMPLETED. NO CHANGES SINCE LAST ASSESSMENT. EYES CLOSED, EASILY WAKES. DENIES ANY NEEDS
[2019-03-02 04:43] LABS: BASOPHILS 0.2 % (0-2); EOSINOPHILS 5.8 % (0-7); HEMATOCRIT 35.5 % (36.0-48.0); HEMOGLOBIN 11.4 g/dL (12-16); IMMATURE GRANULOCYTES 0.3 % (0-5); MCH 30.6 pg (26.0-34.0); MCHC 32.1 g/dL (31.0-37.0); MCV 95.2 fL (80.0-100.0); MEAN PLATELET VOLUME 9.5 fL (7.4-10.4); NEUTROPHILS 63.7 % (40-80); PLATELET COUNT 217 10x3/uL (130-400); RBC 3.73 10x6/uL (4.00-5.40); WBC 9.2 10x3/uL (4.8-10.8)
[2019-03-02 04:58] LABS: ANION GAP 8.4 mmol/L (8-16); CALCIUM 7.8 mg/dL (8.5-10.1); CARBON DIOXIDE 29.2 mmol/L (21.0-32.0); CREATININE - SERUM 0.9 mg/dL (0.6-1.3); MAGNESIUM - SERUM 1.9 mg/dL (1.8-2.4); POTASSIUM - SERUM 3.6 mmol/L (3.5-5.1)
--- NOTE | 2019-03-02 05:00 | NUR ---
EYES CLOSED, EASILY WAKES. DENIES ANY NEEDS. PULSE OX RUNNING IN HIGH 80% TO LOW 90%. DENIES ANY SOB
[2019-03-02 05:04] LABS: PHOSPHOROUS 2.6 mg/dL (2.5-4.9)
--- NOTE | 2019-03-02 06:10 | NUR ---
PATIENT CONT WITH LOW PULSE OX. CHANGED LINE AND STILL LOW. PER ORDERS HAD PT PUT ON BIPAP AT 12/5 ON 100% AND PULSE OX CAME UP TO 100%
--- NOTE | 2019-03-02 08:18 | NUR ---
UP IN BED AWAKE AT THIS TIME ON BIPAP. NO ACUTE DISTRESS NOTED. VSS. BIPAP IN PLACE. DR DUMAS HERE TO SEE PT, NOTIFIED THAT PT DESAT AROUNG 6AM TODAY WHICH IS WHEN BIPAP ORDERS WERE RECIEVED. CURRENTLY ON 70% BIPAP WITH OXYGEN SATURATION 93%. NO NEW ORDERS RECIEVED EXCEPT TO CONTINUE BIPAP UNTIL PULMONOLOGY CAN SEE PT. PT ALERT AND ORIENTED. WILL CONTINUE PLAN OF CARE.
--- NOTE | 2019-03-02 10:11 | NUR ---
NO ACUTE DISTRESS NOTED. VSS. CALL LIGHT IN REACH. WILL CONTINUE PLAN OF CARE.
--- NOTE | 2019-03-02 11:40 | NUR ---
PER DR WINN, ORDER STAT CHEST XR AND ABG.
[2019-03-02 13:09] LABS: CEA 2.1 ng/mL (0.0-4.7)
--- NOTE | 2019-03-02 13:22 | NUR ---
UP IN BED VISITING WITH FAMILY AT THIS TIME. VSS. OXYGEN SATURATION 93% CURRENTLY ON 15L HIGH FLOW NC. NO ACUTE DISTRESS NOTED. WILL CONTINUE PLAN OF CARE.
--- NOTE | 2019-03-02 14:06 | NUR ---
CHG BATH PROVIDED AT THIS TIME ALONG WITH TOTAL LINEN CHANGE. VSS. NO ACUTE DISTRESS NOTED. OXYGEN SATURATION 94% ON 15L HIGH FLOW. WILL CONTINUE PLAN OF CARE.
--- NOTE | 2019-03-02 16:35 | NUR ---
CONTINENT VOID NOTED VIA BEDSIDE TOILET. PT PROVIDED OWN ABENA CARE. PT UP IN CHAIR BESIDE BED AT THIS TIME WATCHING TV AND VISITING WITH . VSS. WILL CONTINUE PLAN OF CARE.
--- NOTE | 2019-03-02 19:00 | NUR ---
ASSESSMENT COMPLETED. DENIES ANY NEEDS. O2 AT 13 L VIA HIGH FLOW NC. DENIES ANY SOB. GOES TO BSC WITH STAND BY ASSIST. CALL LIGHT IN REACH
--- NOTE | 2019-03-02 21:00 | NUR ---
DENIES ANY NEEDS. STAND BY ASSIST WITH BSC
--- NOTE | 2019-03-02 23:00 | NUR ---
RE-ASSESSMENT COMPLETED. NO CHANGES SINCE LAST ASSESSMENT
[2019-03-03] VITALS (24 sets, daily range): BP systolic 98–131; BP diastolic 43–87
--- NOTE | 2019-03-03 01:00 | NUR ---
EYES CLOSED, EASILY WAKES. INDEPENDENT WITH REPOSITIONING
--- NOTE | 2019-03-03 03:00 | NUR ---
RE-ASSESSMENT COMPLETED. NO CHANGES SINCE LAST ASSESSMENT. INDEPENDENT WITH REPOSITIONING
[2019-03-03 03:52] LABS: BASOPHILS 0.2 % (0-2); HEMATOCRIT 35.3 % (36.0-48.0); HEMOGLOBIN 11.3 g/dL (12-16); IMMATURE GRANULOCYTES 0.3 % (0-5); LYMPHOCYTES 16.8 % (15-50); MCH 30.7 pg (26.0-34.0); MCV 95.9 fL (80.0-100.0); MEAN PLATELET VOLUME 9.4 fL (7.4-10.4); MONOCYTES 9.5 % (2-11); NEUTROPHILS 69.2 % (40-80); PLATELET COUNT 213 10x3/uL (130-400); RBC 3.68 10x6/uL (4.00-5.40); RDW 13.7 % (11.5-14.5); WBC 8.9 10x3/uL (4.8-10.8)
[2019-03-03 04:04] LABS: ANION GAP 8.9 mmol/L (8-16); CALCIUM 7.9 mg/dL (8.5-10.1); CARBON DIOXIDE 27.6 mmol/L (21.0-32.0); CREATININE - SERUM 0.9 mg/dL (0.6-1.3); PHOSPHOROUS 2.7 mg/dL (2.5-4.9); POTASSIUM - SERUM 3.5 mmol/L (3.5-5.1)
--- NOTE | 2019-03-03 04:59 | NUR ---
LAYING IN BED, EASILY WAKES, DENIES ANY COMPLAINTS
--- NOTE | 2019-03-03 07:00 | NUR ---
ASSISSTED PT TO BSC. BEDSIDE REPORT RECIEVED. SHIFT ASSESSMENT COMPLETED PER FLOWSHEET, SEE FLOWSHEET FOR INFORMATION. PT DENIES ANY ACUTE NEEDS OR DISTRESS AT THIS TIME. VSS. WILL CONT TO MONITOR.
--- NOTE | 2019-03-03 09:00 | NUR ---
PT IN BED RESTING WITH EYES CLOSED. NO ACUTE NEEDS OR DISTRESS NOTED AT THIS TIME. WILL CONT TO MONITOR.
--- NOTE | 2019-03-03 11:00 | NUR ---
REASSESSMENT COMPLETED PER FLOWSHEET, SEE FLOWSHEET FOR INFORMATION. PT AT BEDSIDE. PT AMBULATED TO CHAIR. NO ACUTE NEEDS OR DISTRESS NOTED AT THIS TIME. WILL CONT TO MONITOR.
--- NOTE | 2019-03-03 13:00 | NUR ---
PT AT BEDSIDE, WATER GIVEN PER REQUEST. WILL CONT TO MONITOR.
--- NOTE | 2019-03-03 15:00 | NUR ---
REASSESSMENT COMPLETED PER FLOWSHEET, SEE FLOWSHEET FOR INFORMATION. PT DENIES ANY NEEDS OR DISTRESS AT THIS TIME. WATER GIVEN PER REQUEST. WILL CONT TO MONITOR.
[2019-03-03 15:08] LABS: LUPUS - INTERPRETATION Comment: (()); LUPUS - THROMBIN TIME 17.3 sec (0.0-23.0); LUPUS - dRVVT 41.4 sec (0.0-47.0); PTT-LA 38.2 sec (0.0-51.9)
--- NOTE | 2019-03-03 15:44 | MORECARE ---
CASE MANAGEMENT DISCHARGE SUMMARY PATIENT: MUNA PEREZ UNIT: [id number] ADM DATE: 02/28/19 AGE: 84 : 34 SEX: F ROOM/BED: D.2309 AUTHOR: JESSICA PHAM PHYSICIAN: REFERRING PHYSICIAN: KIRBY COHEN MD DATE OF SERVICE: 03/03/19 Discharge Plan Patient Name: MUNA PEREZ Facility: [facility]:[place] : 1935 Planned Disposition: Anticipated Discharge Date: Discharge Date: Expected LOS: Initial Reviewer: [email or web address] Initial Review Date: 03/01/2019 Generated: 03/03/19 4:44 pm DCPIA - Discharge Planning Initial Assessment Updated by [email or web address]: Missy Mancilla on 03/03/19 3:39 pm * Is the patient Alert and Oriented? Yes * How many steps to enter\exit or inside your home? * PCP KEANU * Pharmacy [facility] * Preadmission Environment Home with Family * ADLs Independent * Equipment None * List name and contact numbers for known caregivers / representatives who currently or will assist patient after discharge: GABBIE PEREZ - SPOUSE - [phone] * Verbal permission to speak to the caregivers and representatives has been obtained from the patient. Yes * Community resources currently utilized None * Additional services required to return to the preadmission environment? No * Can the patient safely return to the preadmission environment? Yes * Has this patient been hospitalized within the prior 30 days at any hospital? Yes Patient Name: MUNA PEREZ Page [phone] at 1544 All edits/amendments must be made on the electronic document DICTATION DATE: 03/03/19 154 FIXER SUPERVISOR: RINKU 03/03/19 1544 RPT#: [id number] DC DATE: STATUS: ADM IN [facility] [address] [place] [address] END OF REPORT
--- NOTE | 2019-03-03 15:52 | MORECARE ---
CASE MANAGEMENT DISCHARGE SUMMARY PATIENT: MUNA PEREZ UNIT: [id number] ADM DATE: 02/28/19 AGE: 84 : 34 SEX: F ROOM/BED: D.2309 AUTHOR: VERO,DOC PHYSICIAN: REFERRING PHYSICIAN: KIRBY COHEN MD DATE OF SERVICE: 03/03/19 Discharge Plan Patient Name: MUNA PEREZ Facility: [facility]:[place] : 1935 Planned Disposition: Anticipated Discharge Date: Discharge Date: Expected LOS: Initial Reviewer: [email or web address] Initial Review Date: 03/01/2019 Generated: 03/03/19 4:52 pm Comments DCP- Discharge Planning Updated by [id number]: Missy Mancilla on 03/03/19 2:[address] LATE ENTRY 03/01/2019 Patient Name: MUNA PEREZ Admission Status: ER Accout number: [id number] Admission Date: 02-28-2019 : 1935 Admission Diagnosis: Attending: JOSE Current LOS: 3 Anticipated DC Date: Planned Disposition: Primary Insurance: MEDICARE A & B Discharge Planning Comments: CM met with patient to complete initial dc planning assessment. CM educated patient on the CM role and verbal consent given by patient to complete assessment. Patient lives at home with her where she is independent with her care. At discharge patient plans to return home and feels this is a safe discharge. CM discussed availability of home health, rehab services, and medical equipment. Patient states that her has 02 at home but she doesn't. Patient denies any medical equipment or home health. Patient may need walk test if still requiring 02 @ discharge. CM will continue to follow and will assist as needed with dc plans/needs. Music Journalist: Missy Mancilla DCPIA - Discharge Planning Initial Assessment Updated by [id number]: Missy Mancilla on 03/03/19 3:39 pm * Is the patient Alert and Oriented? Yes * How many steps to enter\exit or inside your home? * PCP KEANU * Pharmacy [facility] * Preadmission Environment Home with Family * ADLs Independent * Equipment None * List name and contact numbers for known caregivers / representatives who currently or will assist patient after discharge: GABBIE PEREZ - SPOUSE - [phone] * Verbal permission to speak to the caregivers and representatives has been obtained from the patient. Yes * Community resources currently utilized None * Additional services required to return to the preadmission environment? No * Can the patient safely return to the preadmission environment? Yes * Has this patient been hospitalized within the prior 30 days at any hospital? Yes Last DP export: 03/03/19 2:44 p Patient Name: MUNA PEREZ Page [phone] at 1552 All edits/amendments must be made on the electronic document DICTATION DATE: 03/03/19 1551 CONCRETE SPREADER: RINKU 03/03/19 1551 RPT#: [id number] DC DATE: STATUS: ADM IN [facility] [address] [place] [address] END OF REPORT
--- NOTE | 2019-03-03 17:00 | NUR ---
AT BEDSIDE, NO ACUTE NEEDS OR DISTRESS NOTED AT THIS TIME. PT TALKING ON CELL PHONE. WILL CONT TO MONITOR.
--- NOTE | 2019-03-03 19:15 | NUR ---
REPORT RECEIVED, SHIFT ASSESSMENT COMPLETE, PT IS ALERT AND ORIENTED, ON 8L HF NC WITH 98% O2 SAT. ALL PPP, VSS, CALL LIGHT IN REACH
--- NOTE | 2019-03-03 21:00 | NUR ---
NO VISITORS AT THIS TIME, WILL CON'T TO MONITOR
--- NOTE | 2019-03-03 23:11 | NUR ---
REASSESSMENT COMPLETE, NO CHANGES NOTED, PT RESTING AT THIS TIME, VSS, CALL LIGHT IN REACH
[2019-03-04] VITALS (12 sets, daily range): BP systolic 106–121; BP diastolic 43–75
--- NOTE | 2019-03-04 01:25 | NUR ---
PT RESTING COMFORTABLY AT THIS TIME, WILL CON'T TO MONITOR
--- NOTE | 2019-03-04 03:05 | NUR ---
REASSESSMENT COMPLETE, NO CHANGES NOTED, PT RESTING AT THIS TIME, VSS, CALL LIGHT IN REACH
[2019-03-04 04:26] LABS: BASOPHILS 0.2 % (0-2); EOSINOPHILS 4.5 % (0-7); HEMATOCRIT 33.6 % (36.0-48.0); HEMOGLOBIN 10.6 g/dL (12-16); IMMATURE GRANULOCYTES 0.5 % (0-5); LYMPHOCYTES 18.6 % (15-50); MCH 30.4 pg (26.0-34.0); MCHC 31.5 g/dL (31.0-37.0); MCV 96.3 fL (80.0-100.0); MEAN PLATELET VOLUME 9.6 fL (7.4-10.4); MONOCYTES 9.2 % (2-11); PLATELET COUNT 228 10x3/uL (130-400); RBC 3.49 10x6/uL (4.00-5.40); RDW 14.2 % (11.5-14.5); WBC 8.7 10x3/uL (4.8-10.8)
[2019-03-04 04:42] LABS: ANION GAP 6.8 mmol/L (8-16); CALCIUM 7.6 mg/dL (8.5-10.1); CREATININE - SERUM 0.9 mg/dL (0.6-1.3); MAGNESIUM - SERUM 1.8 mg/dL (1.8-2.4); POTASSIUM - SERUM 3.8 mmol/L (3.5-5.1)
--- NOTE | 2019-03-04 05:15 | NUR ---
PT RESTING AT THIS TIME, VSS, CALL LIGHT IN REACH
--- NOTE | 2019-03-04 07:30 | NUR ---
PATIENT IS ALERT AND OREINTED. SEE ASSESSMENT. SEE ADL'S. AMBULATES TO BEDSIDE COMMODE. DENIES NEEDS AND PAIN AT THIS TIME. WONDERING IF SHE COULD GO TO THE FLOOR TODAY. 6 L HIGH FLOW. AWAITING DR ROMERO.
--- NOTE | 2019-03-04 08:47 | NUR ---
DR JAMES AT BEDSIDE. FROM HER STANDPOINT SHE SAID PATIENT IS GOOD TO GO TO THE FLOOR.
--- NOTE | 2019-03-04 09:58 | NUR ---
DR ALFONSO AT BEDSIDE.
--- NOTE | 2019-03-04 12:18 | EC ---
PATIENT:MUNA PEREZ DATE OF SERVICE: 02/28/19 SEX: F MEDICAL RECORD: [id number] DATE OF : [birth year] LOCATION:[facility] D230 AGE OF PATIENT: 84 ADMISSION DATE: 02/28/19 REFERRING PHYSICIAN: INTERPRETING PHYSICIAN: LATOYA GOODSON MD ECHOCARDIOGRAM REPORT ECHO CHARGES 5 ECHO LIMITED Date: 03/01/19 CLINICAL DIAGNOSIS: PE, HYPOXIA ECHOCARDIOGRAPHIC MEASUREMENTS (adult normal given) AC root (d.<3.7cm) 0 cm LV Septum d (<1.2 cm> 0 cm Valve Excursion 0 cm LV Septum (systole) 0 cm Left Atria (s.<4.0cm> 00 cm LVPW d(<1.2cm) 0 cm RV (d.<2.3cm) 0 cm LVPW (sytole) 0 cm LV diastole(<5.6CM) 0 cm MV E-F(>70mm/sec) 0 cm LV systole 0 cm LVOT Diameter 0 cm MV exc.(>10mm) 0 cm Est.ejection fraction (50-75%) 0 % DOPPLER: LVIT cm/sec A 0 cm/sec E 0 cm/sec LA 00 cm/sec RVSP 42.0 mmHg LVOT 0 cm/sec AOP1/2T 0 m/s Asc. Ao 0 cm/sec RVOT 0 cm/sec RA 0 cm/sec PA 0 cm/sec AV Gradient Peak 0 mmHg AV Mean 0 mmHg AV Area 00 cm MV Gradient Peak 0 mmHg MV Mean 0 mmHg MV Area cm COMMENTS: Ergonomics Consultant: James NEWTON Supervisory Historian: 3 Dr. Green TAPE# PACS Pericardial Effusion N DATE OF SERVICE: This is a limited study includes 2D and color flow. Grossly normal LV internal dimensions. Wall motion is normal. EF is greater than or equal to 55%. Aortic valve is tricuspid with good valve excursion. No AI. Left atrium grossly appears normal. Mitral valve appears normal. Trivial MR. Right-sided chambers are grossly normal. Mild TR. RV systolic pressure is measured greater than 42 mmHg via the continuity equation. ECHOCARDIOGRAM REPORT [id number] MUNA PEREZ TRANSINT:[id number] Voice Confirmation ID: [id number] DOCUMENT ID: [id number] LATOYA GOODSON MD at 1218 CC: [id number] DICTATION DATE: 03/02/19 1016 EXECUTOR OF ESTATE: 03/02/19 1250 ADM IN [place] [id number] [place] [id number]
--- NOTE | 2019-03-04 13:09 | NUR ---
Nutrition follow-up: Diet: Low sodium PO intake ~50% average of meals labs reviewed Wt: 186# tx to floor today RDN following.
[2019-03-04 14:08] LABS: ACLA - IGG AB <9 GPL U/mL (0-14); ACLA - IGM AB <9 MPL U/mL (0-12)
--- NOTE | 2019-03-04 19:15 | NUR ---
REPORT RECEIVED. PT RESTING IN BED, AAOX4. PT ON 5L O2 VIA HF NC. PIV IN RT WRIST INFUSING, SEE IV FLOWSHEET. ASSESSMENT COMPLETED, SEE FLOWSHEET. NO ACUTE DISTRESS NOTED, WILL CONTINUE TO MONITOR.
--- NOTE | 2019-03-04 21:00 | NUR ---
PT ASSISTED TO BEDSIDE COMMODE WITHOUT DIFFICULTY. WILL CONTINUE TO MONITOR.
--- NOTE | 2019-03-04 23:00 | NUR ---
PT RESTING IN BED COMFORTABLY. NO ACUTE DISTRESS NOTED. WILL CONTINUE TO MONITOR.
[2019-03-05] VITALS (10 sets, daily range): BP systolic 93–139; BP diastolic 6–77
--- NOTE | 2019-03-05 01:00 | NUR ---
PT RESTING IN BED, NO ACUTE DISTRESS NOTED. VITALS STABLE, WILL CONTINUE TO MONITOR.
--- NOTE | 2019-03-05 03:00 | NUR ---
PT RESTING COMFORTABLY IN BED, NO ACUTE DISTRESS NOTED.
--- NOTE | 2019-03-05 05:00 | NUR ---
PT AAOX4 SITTING UP IN BED, NO ACUTE DISTRESS NOTED. WILL CONTINUE TO MONITOR.
[2019-03-05 05:04] LABS: BASOPHILS 0.3 % (0-2); EOSINOPHILS 7.3 % (0-7); HEMATOCRIT 33.5 % (36.0-48.0); HEMOGLOBIN 10.6 g/dL (12-16); IMMATURE GRANULOCYTES 0.4 % (0-5); LYMPHOCYTES 23.8 % (15-50); MCH 30.2 pg (26.0-34.0); MCHC 31.6 g/dL (31.0-37.0); MCV 95.4 fL (80.0-100.0); MEAN PLATELET VOLUME 9.3 fL (7.4-10.4); MONOCYTES 8.2 % (2-11); PLATELET COUNT 225 10x3/uL (130-400); RBC 3.51 10x6/uL (4.00-5.40); WBC 7.4 10x3/uL (4.8-10.8)
[2019-03-05 05:19] LABS: ANION GAP 8.5 mmol/L (8-16); CALCIUM 7.6 mg/dL (8.5-10.1); CARBON DIOXIDE 29.3 mmol/L (21.0-32.0); MAGNESIUM - SERUM 1.8 mg/dL (1.8-2.4); POTASSIUM - SERUM 3.8 mmol/L (3.5-5.1)
--- NOTE | 2019-03-05 07:00 | NUR ---
RECEIVED BEDSIDE REPORT ON PATIENT AND ASSUMED CARE. PATIENT ALERT AND ORIENTED X 4, RR - 18, NON LABORED, ON O2 VIA NC AT 5 LPM WITH SPO2 100%. STATES BREATHING IS BETTER, BUT GETS SOB WITH EXERTION. BBS - CLEAR, EQUAL BUT DIMINISHED IN THE BASES. IV 20 GA TO RIGHT HAND WITH NS AT 5 ML/HR INFUSING W/O S/S OF INFILTRATION. PATIENT NOTED TO HAVE +1 EDEMA TO LOWER EXTREMITIES. CM - SR RATE OF 78 WITH NO ECTOPY NOTED. HEAD TO TOE ASSESSMENT COMPLETED. VSS.
--- NOTE | 2019-03-05 07:39 | NUR ---
PATIENT GIVEN BREAKFAST TRAY. VSS. NO NEEDS AT THIS TIME.
--- NOTE | 2019-03-05 07:56 | NUR ---
PATEINT ATE 100% OF BREAKFAST. VSS. MORNING MEDS GIVEN PER APR. NO NEEDS AT THIS TIME.
--- NOTE | 2019-03-05 08:13 | NUR ---
PATEINT UP TO BEDSIDE COMMODE BY SELF, VOIDS 225 ML OF YELLOW UOP, SOB WITH EXERTION AND HR ELEVEATED TO 105.
--- NOTE | 2019-03-05 08:36 | NUR ---
DR. JAMES AT ROOM UPDATED AND EXAMINES PATIENT.
--- NOTE | 2019-03-05 08:37 | NUR ---
SPO2 AT 98% ON O2 AT 5 LPM VIA NC, DECREASED TO 4 LPM.
--- NOTE | 2019-03-05 08:51 | NUR ---
SPO2 - 97% ON O2 AT 4 LPM, DECREASED TO 3 LPM. VSS.
--- NOTE | 2019-03-05 09:10 | NUR ---
PATIENT GIVEN IS AND INSTRUCTED ON USE. IS 500-750 CC. SPO2 - 97% ON 3 LPM O2, DECREASED TO 2 LPM. SON AT BEDSIDE, UPDATED AND QUESTIONS ANSWERED.
--- NOTE | 2019-03-05 09:26 | NUR ---
DR. ALFONSO AT ROOM UPDATED AND EXAMINES PATIENT.
--- NOTE | 2019-03-05 09:53 | NUR ---
DR. RUEDA AT ROOM UPDATED AND EXAMINES PATIENT. SPO2 - 95% ON 2 LPM. VOIDS 100 CC YELLOW UOP TO BEDSIDE COMMODE AND BACK TO BED. VSS.
--- NOTE | 2019-03-05 11:03 | NUR ---
REASSESSMENT COMPLETE. VSS. UTILIZING IS REGULARLY 10/HR OBTAINING 500-750. SPO2 97% ON 2 LPM VIA NC.
--- NOTE | 2019-03-05 11:22 | NUR ---
REPORT GIVEN TO ABDIRIZAK PATTERSON AND PATIENT HANDOFF COMPLETED.
--- NOTE | 2019-03-05 13:20 | NUR ---
PT RESTING IN CHAIR WITH CALL LIGHT [place] REACH, FAMILY AT BEDSIDE, DENIES ANY NEEDS AT THIS TIME, WILL CONT TO FOLLOW POC
--- NOTE | 2019-03-05 15:39 | NUR ---
TO ROOM 2239 FROM ICU. PT IS WITHOUT DISTRESS.FAMILY IS AT BEDSIDE.CALL LIGHT USE INSTRUCTED.MONITOR FOR NEEDSD.
--- NOTE | 2019-03-05 18:13 | NUR ---
HAS BEEN UP TO BATHROOM. PT REMAINS WITHOUT DISTRESS.CALL FOR MONITOR AND SPOKE WITH [facility]. IS AT BEDSIDE.FALL PREVENTION IN PLACE
--- NOTE | 2019-03-05 21:40 | NUR ---
rec'd. walking rounds chge of shift. with respGloria claros at bedside.02 high flow 2l sats 96%. no resp. difficulty observed at present time.will continue to monitor for any chges in resp. status and follow current plan of care.
[2019-03-06 00:39] VITALS: BP 120/69
[2019-03-06 04:00] VITALS: BP 138/60
[2019-03-06 04:07] LABS: FACTOR II DNA ANALYSIS Negative (())
[2019-03-06 05:41] LABS: BASOPHILS 0.3 % (0-2); EOSINOPHILS 7.5 % (0-7); HEMATOCRIT 33.1 % (36.0-48.0); HEMOGLOBIN 10.6 g/dL (12-16); IMMATURE GRANULOCYTES 0.1 % (0-5); LYMPHOCYTES 23.1 % (15-50); MCH 30.7 pg (26.0-34.0); MCV 95.9 fL (80.0-100.0); MEAN PLATELET VOLUME 9.4 fL (7.4-10.4); MONOCYTES 9.4 % (2-11); NEUTROPHILS 59.6 % (40-80); PLATELET COUNT 211 10x3/uL (130-400); RBC 3.45 10x6/uL (4.00-5.40); WBC 6.9 10x3/uL (4.8-10.8)
[2019-03-06 05:58] LABS: CALC OSMOLALITY 280 mosm/kg (275-300); CALCIUM 7.6 mg/dL (8.5-10.1); CARBON DIOXIDE 25.9 mmol/L (21.0-32.0); CHLORIDE - SERUM 110 mmol/L (98-107); GLUCOSE 85 mg/dL (74-106); MAGNESIUM - SERUM 2.1 mg/dL (1.8-2.4); SODIUM 142 mmol/L (136-145); UREA NITROGEN 9 mg/dL (7-18); eGFR NON AFRICAN AMERICAN 84 mL/min (90-120)
[2019-03-06 06:08] LABS: CREATININE - SERUM 0.7 mg/dL (0.6-1.3)
--- NOTE | 2019-03-06 07:25 | NUR ---
I have reviewed this patient and I concur with the Shift Assessment completed by the Licensed Practical Nurse today this shift.
[2019-03-06 08:13] VITALS: BP 149/61
--- NOTE | 2019-03-06 10:52 | NUR ---
I have reviewed this patient and I concur with the Shift Assessment completed by the Licensed Practical Nurse today this shift.
--- NOTE | 2019-03-06 10:54 | NUR ---
PT SITTING UP IN CHAIR WITH FAMILY AT BEDSIDE, PER PHYSICAL THERAPY PT WALKED ABOUT 250 FT AND DID WELL WITH NO O2 ON PER PT AND PHYSICAL THERAPY. NO NEEDS VOICED, CL IN REACH CONTINUE WITH PLAN OF CARE
--- NOTE | 2019-03-06 11:46 | NUR ---
PT STATES SHE FINALLY HAD A BM IS IS FEELING SO MUCH BETTER, PT HAD ASKED DR JAMES THIS MORNING FOR SOMETHING TO ASSIST WITH BM BUT DOES NOT NEED NOW. CONTINUE WITH PLAN OF CARE
[2019-03-06 13:05] VITALS: BP 131/70
--- NOTE | 2019-03-06 13:12 | MORECARE ---
CASE MANAGEMENT DISCHARGE SUMMARY PATIENT: MUNA PEREZ UNIT: [id number] ADM DATE: 02/28/19 AGE: 84 : 34 SEX: F ROOM/BED: D.2239 AUTHOR: VERO,DOC PHYSICIAN: REFERRING PHYSICIAN: KIRBY COHEN MD DATE OF SERVICE: 03/06/19 Discharge Plan Patient Name: MUNA PEREZ Facility: [facility]:[place] : 1935 Planned Disposition: Anticipated Discharge Date: Discharge Date: Expected LOS: Initial Reviewer: [email or web address] Initial Review Date: 03/01/2019 Generated: 03/06/19 2:11 pm Comments DCP- Discharge Planning Updated by [email or web address]: Natalya Espinoza on 03/06/19 12:[address] Patient's room air oxygen saturation is 97% at rest and 91% with exertion, she does not qualify for home oxygen. CM will continue to follow and assist with discharge planning/needs. DCP- Discharge Planning Updated by [email or web address]: Missy Mancilla on 03/03/19 2:[address] LATE ENTRY 03/01/2019 Patient Name: MUNA PEREZ Admission Status: ER Accout number: [id number] Admission Date: 02-28-2019 : 1935 Admission Diagnosis: Attending: JOSE Current LOS: 3 Anticipated DC Date: Planned Disposition: Primary Insurance: MEDICARE A & B Discharge Planning Comments: CM met with patient to complete initial dc planning assessment. CM educated patient on the CM role and verbal consent given by patient to complete assessment. Patient lives at home with her where she is independent with her care. At discharge patient plans to return home and feels this is a safe discharge. CM discussed availability of home health, rehab services, and medical equipment. Patient states that her has 02 at home but she doesn't. Patient denies any medical equipment or home health. Patient may need walk test if still requiring 02 @ discharge. CM will continue to follow and will assist as needed with dc plans/needs. Medical Data Analyst: Missy Mancilla DCPIA - Discharge Planning Initial Assessment Updated by [email or web address]: Missy Mancilla on 03/03/19 3:39 pm * Is the patient Alert and Oriented? Yes * How many steps to enter\exit or inside your home? * PCP KEANU * Pharmacy [facility] * Preadmission Environment Home with Family * ADLs Independent * Equipment None * List name and contact numbers for known caregivers / representatives who currently or will assist patient after discharge: GABBIE PEREZ - [facility] - [phone] * Verbal permission to speak to the caregivers and representatives has been obtained from the patient. Yes * Community resources currently utilized None * Additional services required to return to the preadmission environment? No * Can the patient safely return to the preadmission environment? Yes * Has this patient been hospitalized within the prior 30 days at any hospital? Yes Last DP export: 03/03/19 2:52 p Patient Name: MUNA PEREZ Page [id number] at 1312 All edits/amendments must be made on the electronic document DICTATION DATE: 03/06/19 [address] STEWARD: RINKU 03/06/19 1311 RPT#: [id number] DC DATE: STATUS: ADM IN [facility] [address] [place] [address] END OF REPORT
[2019-03-06] MEDS ORDERED: LEVAQUIN750 MG PO (13:23)
[2019-03-06] MEDS ORDERED: ELIQUIS5 MG PO (13:27)
--- NOTE | 2019-03-07 08:23 | MORECARE ---
CASE MANAGEMENT DISCHARGE SUMMARY PATIENT: MUNA PEREZ UNIT: [id number] ADM DATE: 02/28/19 AGE: 84 : 34 SEX: F ROOM/BED: D.2239 AUTHOR: VERO,DOC PHYSICIAN: REFERRING PHYSICIAN: KIRBY COHEN MD DATE OF SERVICE: 03/07/19 Discharge Plan Patient Name: MUNA PEREZ Facility: [facility]:[place] : 1935 Planned Disposition: Anticipated Discharge Date: Discharge Date: 03/06/2019 Expected LOS: 0 Initial Reviewer: [email or web address] Initial Review Date: 03/01/2019 Generated: 03/07/19 9:22 am Comments DCP- Discharge Planning Updated by [email or web address]: Natalya Espinoza on 03/06/19 12:[address] Patient's room air oxygen saturation is 97% at rest and 91% with exertion, she does not qualify for home oxygen. CM will continue to follow and assist with discharge planning/needs. DCP- Discharge Planning Updated by [email or web address]: Missy Mancilla on 03/03/19 2:[address] LATE ENTRY 03/01/2019 Patient Name: MUNA PEREZ Admission Status: ER Accout number: [id number] Admission Date: 02-28-2019 : 1935 Admission Diagnosis: Attending: JOSE Current LOS: 3 Anticipated DC Date: Planned Disposition: Primary Insurance: MEDICARE A & B Discharge Planning Comments: CM met with patient to complete initial dc planning assessment. CM educated patient on the CM role and verbal consent given by patient to complete assessment. Patient lives at home with her where she is independent with her care. At discharge patient plans to return home and feels this is a safe discharge. CM discussed availability of home health, rehab services, and medical equipment. Patient states that her has 02 at home but she doesn't. Patient denies any medical equipment or home health. Patient may need walk test if still requiring 02 @ discharge. CM will continue to follow and will assist as needed with dc plans/needs. Studio Potter: Missy Mancilla DCPIA - Discharge Planning Initial Assessment Updated by [email or web address]: Missy Mancilla on 03/03/19 3:39 pm * Is the patient Alert and Oriented? Yes * How many steps to enter\exit or inside your home? * PCP KEANU * Pharmacy [facility] * Preadmission Environment Home with Family * ADLs Independent * Equipment None * List name and contact numbers for known caregivers / representatives who currently or will assist patient after discharge: GABBIE PEREZ - [facility] - [phone] * Verbal permission to speak to the caregivers and representatives has been obtained from the patient. Yes * Community resources currently utilized None * Additional services required to return to the preadmission environment? No * Can the patient safely return to the preadmission environment? Yes * Has this patient been hospitalized within the prior 30 days at any hospital? Yes Coverage Notice Reviewer: [email or web address] Enzo Espinoza Notice Issued Date-Time: 03/06/2019 13:59 Notice Type: IM Discharge Notice Notice Delivered To: Patient Relationship to Patient: Self Vacuum Frame Operator Name: Delivery Method: HAND - Hand Delivered [place] Days: Prior Verbal Notification: Recipient Understood Notice: Yes Recipient Signature: Yes Med Rec Note Co-signed by Attending: Coverage Notice Comment: IMM explained, signed, given, copy placed in MR Reviewer: [id number] Enzo Espinoza Notice Issued Date-Time: 03/06/2019 13:59 Notice Type: Patient Choice Letter Notice Delivered To: Patient Relationship to Patient: Self Vacuum Frame Operator Name: Delivery Method: HAND - Hand Delivered [place] Days: Prior Verbal Notification: Recipient Understood Notice: Yes Recipient Signature: Yes Med Rec Note Co-signed by Attending: Coverage Notice Comment: CARYL for declination of HH Last DP export: 03/06/19 12:12 p Patient Name: MUNA PEREZ Page [id number] at 0823 All edits/amendments must be made on the electronic document DICTATION DATE: 03/07/19821 SOCIAL RESEARCH ASSISTANT: RINKU 03/07/19821 RPT#: [id number] DC DATE:03/06/19 STATUS: DIS IN [facility] [address] [place] [address] END OF REPORT
== END 2019-03-06 15:05 | disposition home or self-care (01) | DRG 175 ==
LOC: D.ER 11:04 → D.ICU 14:00 → D.MS 03-05 15:37
PROVIDERS: Family Medicine; Internal Medicine Hematology & Oncology; ADMIT Family Medicine; ATTEND Family Medicine
DX: I26.99 Other pulmonary embolism without acute cor pulmonale (principal); J96.01 Acute respiratory failure with hypoxia; N17.9 Acute kidney failure, unspecified; I25.10 Atherosclerotic heart disease of native coronary artery without angina pectoris; I10 Essential (primary) hypertension; E03.9 Hypothyroidism, unspecified; K21.9 Gastro-esophageal reflux disease without esophagitis; M19.90 Unspecified osteoarthritis, unspecified site; E66.9 Obesity, unspecified; Z68.34 Body mass index [BMI] 34.0-34.9, adult; J43.9 Emphysema, unspecified

== ENCOUNTER 2019-09-05 11:15 | Outpatient (CLI) | payer MEDICARE ==
[2019-03-01 09:35] VITALS: BMI 34.4
[~2019-09-05 11:15] MED LIST changes: +ELIQUIS5 MG PO; +LEVAQUIN750 MG PO
== END 2019-09-05 12:15 | disposition home or self-care (01) ==
LOC: D.MAMMO 11:15
PROVIDERS: ATTEND Family Medicine
DX: Z12.31 Encounter for screening mammogram for malignant neoplasm of breast (principal)